=== PATIENT | male | born 1945 | race Caucasian/White ===

== ENCOUNTER 2018-04-05 14:28 | Inpatient (IN) | END 2018-04-10 14:26 | disposition home or self-care (01) | DRG 193 ==

== ENCOUNTER → 2018-11-02 | Outpatient (CLI) | payer MEDICARE, OTHER ==
[~2018-11-02] MED LIST: ACET325 PO; ARIP10 PO; Abilify2 MG PO; DONE10 PO; LEVFLO500 PO; LOPE2C PO; NYSTATIN1 EAC1 TOP; RANI150 PO; TRAZ100 PO
[2018-11-02 15:47] LABS: Appearance, Urine Hazy (Clear); Bilirubin, Urine Neg (Neg); Blood, Urine 1+ (Neg); Color, Urine Yellow (P-Yellow); Glucose Qualitative, Urine Neg (Neg); Ketones, Urine 1+ (Neg); Leukocyte Esterase, Urine 3+ (Neg); Nitrite, Urine Neg (Neg); Protein, Urine 2+ (Neg); Urobilinogen, Urine NORM (Normal); pH, Urine 6.5 (5.0-8.0)
[2018-11-02 16:04] LABS: Squamous Epithelial Cells Few /hpf (Few); White Blood Cells, Urine 50-100 /hpf (0-5)
[2018-11-02 16:05] LABS: Amorphous Light (0-Heavy); Bacteria Few /hpf; Mucus Light (0-Heavy); Transitional Epithelial Cells Rare /hpf (0-Rare)
== END | disposition home or self-care (01) ==
LOC: LAB 13:20 → LAB SHORT 13:20
PROVIDERS: Nurse Practitioner Primary Care
DX: N39.0 Urinary tract infection, site not specified (principal)
CPT/HCPCS: 81001; 87077; 87086; 87186

== ENCOUNTER 2018-11-03 15:20 | Inpatient (IN) | payer MEDICARE, OTHER ==
[~2018-11-03] VITALS: Ht 182.9 cm; Wt 66.5 kg
[~2018-11-03 15:20] MED LIST changes: -LOPE2C PO
[2018-11-03 16:02] LABS: BASOPHILS ABSOLUTE AUTO 0.03 K/mm3 (0.00-0.23); BASOPHILS PERCENT AUTO 0 % (0-2); EOSINOPHILS ABSOLUTE AUTO 0.01 K/mm3 (0.00-0.68); EOSINOPHILS PERCENT AUTO 0 % (0-6); Hematocrit 47.8 % (37.0-53.0); Hemoglobin 15.3 g/dL (13.5-17.5); IMMATURE GRAN ABSOLUTE AUTO 0.06 K/mm3 (0.00-0.10); IMMATURE GRAN PERCENT AUTO 0 % (0-1); LYMPHOCYTES ABSOLUTE AUTO 0.55 K/mm3 (0.84-5.20); LYMPHOCYTES PERCENT AUTO 3 % (21-46); MONOCYTES ABSOLUTE AUTO 0.66 K/mm3 (0.16-1.47); MONOCYTES PERCENT AUTO 4 % (4-13); Mean Corpuscular HGB 29.3 pg (26.0-34.0); Mean Corpuscular Volume 92 fL (80-100); Mean Platelet Volume 11.1 fL (9.1-12.4); NEUTROPHILS ABSOLUTE AUTO 14.81 K/mm3 (1.96-9.15); NEUTROPHILS PERCENT AUTO 92 % (41-73); NRBC ABSOLUTE 0.02 K/mm3 (0.00-0.02); NRBC Auto 0.1 /100 WBC (0.0-0.2); Platelet Count 161 K/mm3 (150-400); RDW Coefficient Variation 15.9 % (11.7-14.2); Red Blood Cell Count 5.22 M/mm3 (4.30-5.90); White Blood Cell Count 16.12 K/mm3 (4.00-11.30)
[2018-11-03 16:09] LABS: Source, Urine Catheter
[2018-11-03 16:13] LABS: Appearance, Urine Clear (Clear); Bilirubin, Urine Neg (Neg); Blood, Urine Neg (Neg); Color, Urine Yellow (P-Yellow); Glucose Qualitative, Urine Neg (Neg); Ketones, Urine 3+ (Neg); Leukocyte Esterase, Urine 1+ (Neg); Nitrite, Urine Neg (Neg); Protein, Urine 1+ (Neg); Specific Gravity, Urine 1.025 (1.003-1.022); Urobilinogen, Urine NORM (Normal)
[2018-11-03 16:13] LABS: Alanine Aminotransfer (ALT/SGP 72 U/L (12-78); Albumin, Blood 3.6 g/dL (3.4-5.0); Albumin/Globulin Ratio 1.1 (0.8-1.8); Alk Phos 124 U/L (50-136); Anion Gap 11 mmol/L (6-16); Aspartate Aminotrans (AST/SGOT 58 U/L (12-37); Bilirubin, Total 0.8 mg/dL (0.1-1.0); Blood Urea Nitrogen 34 mg/dL (8-24); Bun/Creatinine Ratio 29.8 (12.0-20.0); CO2, Blood 22 mmol/L (21-32); Calcium, Blood 9.5 mg/dL (8.5-10.1); Chloride, Blood 108 mmol/L (98-108); Creatinine, Blood 1.14 mg/dL (0.60-1.20); Globulin, Blood 3.4 g/dL (2.2-4.0); Glomerular Filtration Rate >60 (60-); Glucose, Blood 84 mg/dL (70-99); Potassium, Blood 4.5 mmol/L (3.5-5.5); Sodium, Blood 141 mmol/L (136-145)
[2018-11-03 16:24] LABS: Bacteria Few /hpf; Red Blood Cells, Urine Not Seen /hpf (0-2); Squamous Epithelial Cells Rare /hpf (Few)
[2018-11-03 18:32] LABS: PCO2 Arterial 34.7 mmHg (35-45); pH Blood Arterial 7.38 (7.35-7.45)
[2018-11-03 18:33] LABS: PO2 Arterial 46.1 mmHg (80-100)
--- NOTE | 2018-11-03 22:51 | NUR ---
PT ARRIVAL. PT TRANSFERED TO UNIT FROM ED. PT IS LETHARGIC AND IS UNABLE TO COMMUNICATE. PT GRUNTS TO SOME QUESTIONS IN RESPONSE BUT NO SENSICAL ANSWERS, PT DOES NOT FOLLOW DIRECTIONS WELL. PT HAS HISTORY OF DEMENTIA AND BLINDNESS. BED ALARM IS ON. TELE PLACED, SR W/PACS IN THE 70'S. BP 117/61. NO EDEMA NOTED ON ASSESSMENT. L/S DIM. BT PRESENT AND HYPOACTIVE. ABD IS SOFT AND NONTENDER TO PALP. CALL LIGHT IS IN REACH, BED IS LOCKED AND LOW, WILL CONTINUE TO MONITOR.
[2018-11-03] MEDS ORDERED: LOPE2C PO (23:17)
[2018-11-04 04:00] LABS: Hematocrit 42.1 % (37.0-53.0); Hemoglobin 13.6 g/dL (13.5-17.5); Mean Corpuscular HGB 29.5 pg (26.0-34.0); Mean Corpuscular HGB Conc 32.3 g/dL (31.5-36.5); Mean Corpuscular Volume 91 fL (80-100); Mean Platelet Volume 11.2 fL (9.1-12.4); Platelet Count 148 K/mm3 (150-400); RDW Coefficient Variation 15.7 % (11.7-14.2); RDW Standard Deviation 51.6 fL (35.1-46.3); Red Blood Cell Count 4.61 M/mm3 (4.30-5.90); White Blood Cell Count 18.71 K/mm3 (4.00-11.30)
[2018-11-04 04:23] LABS: Anion Gap 11 mmol/L (6-16); Blood Urea Nitrogen 31 mg/dL (8-24); CO2, Blood 22 mmol/L (21-32); Calcium, Blood 8.6 mg/dL (8.5-10.1); Chloride, Blood 110 mmol/L (98-108); Creatinine, Blood 1.07 mg/dL (0.60-1.20); Glomerular Filtration Rate >60 (60-); Glucose, Blood 234 mg/dL (70-99); Potassium, Blood 3.7 mmol/L (3.5-5.5); Sodium, Blood 143 mmol/L (136-145)
[2018-11-04 04:56] LABS: BAND PERCENT MAN 14 % (0-8); BASOPHILS PERCENT MAN 0 % (0-2); EOSINOPHILS PERCENT MAN 0 % (0-6); LYMPHOCYTES % ATYPICAL MANUAL 1 % (0-0); LYMPHOCYTES ABSOLUTE MAN 0.18 K/mm3 (0.84-5.20); MONOCYTES ABSOLUTE MAN 0.37 K/mm3 (0.16-1.47); MONOCYTES PERCENT MAN 2 % (4-13); NEUTROPHILS ABSOLUTE MAN 18.14 K/mm3 (1.96-9.15); SEG NEUTROPHILS PERCENT MAN 83 % (41-73); TOTAL CELLS COUNTED 100
--- NOTE | 2018-11-04 05:43 | NUR ---
SHIFT SUMMARY. PT IS A&O TO ONLY HIMSELF, HE IS NOT LETHARGIC ANY MORE, HE IS WIDE AWAKE, PULLING OFF THE TELE, ATTENDS AND HIS GOWN AND ATTEMPTING TO CLIMB OUT OF BED. PT IS VERY CONFUSED AND AT TIMES COMBATIVE. PT IS ALSO VERY STRONG. VS HAVE BEEN STABLE, AND NO CARDIAC EVENTS ON TELE. PT IS VERY FIXATED ON THE TELE LEADS/CORD AND HIS IV, ATTEMPTS TO DISTRACT PT FROM THESE HAVE FAILED. CALL LIGHT IS IN REACH, BED IS LOCKED AND LOW, WILL CONTINUE TO MONITOR UNTIL REPORT IS GIVEN TO ONCOMING RN.
--- NOTE | 2018-11-04 09:38 | NUR ---
PCU DAYSHIFT ASSUMED CARE OF PT APPROX. 0700. PT ALERT AND ORIENTED TO SELF. PT UNABLE TO FOLLOW DIRECTIONS AT THIS TIME. BUT PT AWAKE AND SITTING UP IN BED. ASSESSMENT COMPLETED, VITAL SIGNS STABLE. SIDE RAILS UP ON BED, BED ALARM ON, CALL LIGHT IN REACH AND PT DENIES ANY NEEDS AT THIS TIME.
--- NOTE | 2018-11-04 09:40 | NUR ---
PT HAS SOME INCREASED CONFUSION AND AGGITATION. PT ATTEMPTING TO GET OUT OF BED, REPORTED THAT HE IS GOING TO LEAVE THIS PLACE. PT ALSO TORE OFF TELE MONITOR AND IV AT THIS TIME. ORIENTED PT AND EDUCATED ON LOCATION AND SITUATION. TELE MONITOR REPLACED. IV SITE ASSESSMENT AND REMAIN INTACT. IV RECONNECTED AT THIS TIME.
--- NOTE | 2018-11-04 13:43 | NUR ---
PT MOVED FROM PCU 15 TO PCU 10 FOR PT SAFETY, PT CONTINUES TO HAVE CONFUSION AND ATTEMPTS TO CRAWL OUT OF BED AND PULL ON IV AND CORDS. PT TRANSPORTED BY BED BY PEER STAFF. PT SITUATED AND ORIENTED TO NEW ROOM.
--- NOTE | 2018-11-04 15:21 | NUR ---
UNABLE TO ABTAIN BLOOD PRESSURE AT NOON VITALS DUE TO CONFUSION AND AGGITATION. PT WOULD NOT HOLD ARM STILL LONG ENOUGH TO OBTAIN AND THEN CONTINUED TO PULL BLOOD PRESSURE CUFF OFF.
--- NOTE | 2018-11-04 17:44 | NUR ---
SHIFT SUMMARY PT ASSESSMENT REMAINS UNCHANGED FROM MORNING. PT HAD INCREASED CONFUSION AND AGGIATION INTTERMITTENTLY. PT CONTINUED TO ATTEMPT TO GET OUT OF BED AND PULL ON CORDS AND LINES. TIFFANIE VEST PLACED PER PMD ORDERS. THIS HELPED PT. PT MORE RELAXED AND DID NOT ATTEMPT TO CRAWL OUT OF BED WITH THIS. OCCASIONALLY PT ABLE TO FOLLOW ONE STEP DIRECTIONS WHEN GIVEN. PT REMAINS NPO UNABLE TO FOLLOW DIRECTIONS WHEN ASSESSING ABILITY TO SWALLOW. TIFFANIE VEST REMAINS IN PLACE, BED IN LOW POSTION, BED ALARM ON, CALL LIGHT IN REACH AND PT DENIES ANY NEEDS AT THIS TIME. WILL CONTINUE TO MONITOR UNTIL HANDOFF TO NIGHTSHIFT RN.
--- NOTE | 2018-11-05 06:10 | NUR ---
SHIFT SUMMARY PT CONFUSED TO SELF AND SURROUNDINGS T/O SHIFT. HE WAS PULLING AT LINES, ATTEMPTING TO GET OUT OF BED CONTINUALLY, AND YELLING OUT DURING THE NIGHT. HE REMAINED IN HIS TIFFANIE VEST WITH 4X SIDE RAILS IN PLACE FOR SAFETY. PT HAS BED ALARM ACTIVE AND BED IN LOWEST POSITION. PT DID NOT GET ANY SLEEP DURING THE NIGHT. HE HAS BEEN ROUTINELY ROUNDED ON Q1-2 HOURS FOR RESTRAINT AND WELL-BEING MONITORING. PT DOES NOT SHOW ANY S/SX OF PAIN OR DISCOMFORT. HE HAD NO ACUTE CHANGES TO VITALS OR LOC. HE WILL CONTINUE TO BE MONITORED UNTIL KENNY TO [facility] SPARROW.
--- NOTE | 2018-11-05 18:08 | NUR ---
SHIFT SUMMARY Assumed care at 0700. Report recieved from Usama SPARROW. Pt on room air. Medical floor status without telemetry. Pt in vest restraint. Pt combative when staff providing care. Instructed by Dr Owens to attempt PO intake with pt as speech therapy has been unavailable. PO intake attempted with charge account identification clerk, Aure. Pt unable to follow directions. Applesauce was placed in pt's mouth and he retained it there intead of swallowing. Bolus eventually suctioned out of pt's mouth. No coughing, choking, or gagging noted. Pt recieved assingment on medical floor, for room 345. Report called to medical floor RN. Pt transferred from PCU to medical floor at 1705 via bed, accompanied by Aure SPARROW and Lisy YUSUF. Medications, belonings, and chart transferred with patient.
--- NOTE | 2018-11-05 18:42 | NUR ---
SHIFT SUMMARY: NO ACUTE CHANGES SINCE TRANSFER FROM PCU TO [facility]. PT REMAINS IN TIFFANIE VEST. HE HAS BEEN REDIRECTABLE. WILL CTM UNITL REPORT GIVEN TO NEXT SHIFT RN.
--- NOTE | 2018-11-06 04:30 | NUR ---
SHIFT SUMMARY: PT IS ALERT, INCOHERENT VERBALLY, CANNOT DETERMINE ORIENTATION, BASELINE ADVANCED DEMENTIA. PT IN TIFFANIE VEST, PULLING AT LINES AND ATTENDS, CALLED DR. MUHAMMAD AND RECEIVED AN ORDER FOR BL WRIST RESTRAINTS. PT SLEEPING INTERMITTENTLY THROUGHOUT THE NIGHT, CALLING OUT AT TIMES. FLUIDS RUNNING ORDERED. PT INCONTINENT ON SEVERAL OCCASIONS, CHANGED AND CLEANED NEEDED. PT SHOWS NO S/S FOR PAIN, NAUSEA, VOMITING, OR SOB. BED IN LOW POSITION, CALL LIGHT WITHIN REACH, BED ALARM SET. WILL REPORT TO DAY NURSE.
[2018-11-06 05:12] LABS: BASOPHILS ABSOLUTE AUTO 0.01 K/mm3 (0.00-0.23); BASOPHILS PERCENT AUTO 0 % (0-2); EOSINOPHILS PERCENT AUTO 0 % (0-6); Hematocrit 37.2 % (37.0-53.0); Hemoglobin 12.1 g/dL (13.5-17.5); IMMATURE GRAN ABSOLUTE AUTO 0.07 K/mm3 (0.00-0.10); IMMATURE GRAN PERCENT AUTO 1 % (0-1); LYMPHOCYTES PERCENT AUTO 3 % (21-46); MONOCYTES ABSOLUTE AUTO 0.65 K/mm3 (0.16-1.47); MONOCYTES PERCENT AUTO 5 % (4-13); Mean Corpuscular HGB 29.2 pg (26.0-34.0); Mean Corpuscular HGB Conc 32.5 g/dL (31.5-36.5); Mean Corpuscular Volume 90 fL (80-100); Mean Platelet Volume 11.3 fL (9.1-12.4); NEUTROPHILS ABSOLUTE AUTO 12.83 K/mm3 (1.96-9.15); NEUTROPHILS PERCENT AUTO 92 % (41-73); NRBC ABSOLUTE 0.02 K/mm3 (0.00-0.02); NRBC Auto 0.1 /100 WBC (0.0-0.2); Platelet Count 146 K/mm3 (150-400); RDW Standard Deviation 51.6 fL (35.1-46.3); Red Blood Cell Count 4.14 M/mm3 (4.30-5.90); White Blood Cell Count 13.96 K/mm3 (4.00-11.30)
--- NOTE | 2018-11-06 13:22 | NUR ---
INITIAL PAL CARE EVAL AND VISIT. Pt sitting up in bed with jennifer vest in place. He is wide awake and alert but confused. He is not able to converse in an intelligible way and attempting conversation appears to make him anxious. He is fairly quiet in the room for the 45-60 minutes that I was on the phone and charting outside of his room. I reviewed EMR and ST bowen done this am. UPdate also obtained from pt's RN. EMR has a POLST completed in 2014 requesting full code and full treatment. NO AD or decision maker documentation was found in the EMR. T/C to pt's listed [facility], ph# [phone]. She does have an AD for Gian naming her as his POA for and faxed that to me. She was given an update on Gian's current status and concerns and goals of care reviewed with her. She was agreeable to completing an updated POLST based on pt's AD, which stated that pt did NOT want his life prolonged by life support or tube feedings. Vida states she will come see pt on the but that he may not recognize her. She also states she will call patient's daughter and give her an update on his status. Dr, RN and Care Managers updated on all of the above and new POLST. Orders entered for change of code status to DNR, hospice eval, oncology social work for assist w/dc plan. Discused goal of s/s management, comfort/hospice care with [facility] and potential d/c today. They will need copies of POLST and AD also. Jonathan at [facility] states Gian was eating fairly well and was independently ambulatory prior to his current decline/illness and lives in an upstairs room. [facility] does not have staff available to evaluate for readmission until November 08. This was also reported to RN, AMOR and . Pt's s/s appear mostly well managed as he did not display painful behaviours during my visit but he may need prn medications for anxiety and/or agitation. Spoke to regarding this. AD and POLST to be sent to medical records for scanning into record and then placed on chart to be sent with pt back to [facility].
--- NOTE | 2018-11-06 17:57 | NUR ---
SHIFT SUMMARY. PT IS ALERT, DISORIENTATED, INCOMPREHENSIBLE SPEECH, DOES NOT FOLLOW COMMANDS OR ANSWER QUESTIONS. PT CONTINUES WITH TIFFANIE VEST AND WRIST RESTRAINTS SECONDARY TO VERY HIGH FALL RISK SECONDARY TO CONFUSION AND IMPULSIVITY. PT PULLS AT LINES, PT IS STRICT NPO AND REQUIRING IV HYDRATION. SPOKE WITH DR. PINO, RECIEVED ORDERS TO REDUCE RATE OF IV NS TO 75 ML/HR. PT RESPONDED WELL TO FIRST ATTENDS CHANGE, EVERY OTHER ATTENDS CHANGE HAS REQUIRED 3-4 STAFF DUE TO AGITATION. CALM, LOW STIMULUS ENVIRONMENT PROVIDED, PT REPOSITIONED WITH EACH ATTENDS CHANGE. PT WITH NO S/SX OF SOB, N/V, OR PAIN. PER ST, PT IS STRICT NPO, SEE ST SWALLOW EVAL. NO OTHER CHANGES.
--- NOTE | 2018-11-07 05:16 | NUR ---
SHIFT SUMMARY PT AWAKE UNTIL ROUGHLY 0330 THIS AM & HAS BEEN SLEEPING WELL SINCE. PT IS CONFUSED BUT ALERT TO SELF. HIS EYES LOOK IN YOUR DIRECTION WHEN YOU SAY HIS NAME & HE MUMBLES. EARLIER IN SHIFT PT WAS VERY AGITATED TRYING TO GET OOB, PULLING ON RESTRAINTS, TAKING ATTENDS OFF & YELLING "HELP ME" REPETITIVELY. NOTIFIED DR. MUHAMMAD OF PTS AGITATION & SHE ORDERED A 1X DOSE OF HALDOL. PT HAS BEEN CALMLY RESTING SINCE. RESTRAINT ORDER RENEWED FOR SAFETY & RESTRAINTS HAVE BEEN REMOVED & SKIN CHECKED Q2H & PRN. NO S/S PAIN, N/V OR SOB. CALL LIGHT IS IN REACH & BED IS IN LOWEST POSITION.
--- NOTE | 2018-11-07 19:21 | NUR ---
PT LETHARGIC AND AGITATED AT TIMES. VS WITHIN NORMAL LIMITS. ZYPREXA GIVEN FOR AGITATION. PT RESTED FOR THE REST OF SHIFT. PT INCONTINENT. IN BILATERAL SOFT WRIST RESTRAINTS AND VEST. BED ALARM SET. REPORT GIVEN TO ONCOMING NURSE.
[2018-11-08 05:03] LABS: BASOPHILS ABSOLUTE AUTO 0.02 K/mm3 (0.00-0.23); BASOPHILS PERCENT AUTO 0 % (0-2); EOSINOPHILS PERCENT AUTO 0 % (0-6); Hemoglobin 12.6 g/dL (13.5-17.5); IMMATURE GRAN ABSOLUTE AUTO 0.11 K/mm3 (0.00-0.10); IMMATURE GRAN PERCENT AUTO 1 % (0-1); LYMPHOCYTES PERCENT AUTO 3 % (21-46); MONOCYTES ABSOLUTE AUTO 0.76 K/mm3 (0.16-1.47); MONOCYTES PERCENT AUTO 6 % (4-13); Mean Corpuscular HGB 29.5 pg (26.0-34.0); Mean Corpuscular HGB Conc 33.2 g/dL (31.5-36.5); Mean Corpuscular Volume 89 fL (80-100); Mean Platelet Volume 10.5 fL (9.1-12.4); NEUTROPHILS ABSOLUTE AUTO 10.67 K/mm3 (1.96-9.15); NEUTROPHILS PERCENT AUTO 89 % (41-73); NRBC ABSOLUTE 0.02 K/mm3 (0.00-0.02); NRBC Auto 0.2 /100 WBC (0.0-0.2); Platelet Count 140 K/mm3 (150-400); RDW Coefficient Variation 15.9 % (11.7-14.2); RDW Standard Deviation 51.4 fL (35.1-46.3); Red Blood Cell Count 4.27 M/mm3 (4.30-5.90); White Blood Cell Count 11.96 K/mm3 (4.00-11.30)
[2018-11-08 05:23] LABS: Alanine Aminotransfer (ALT/SGP 38 U/L (12-78); Albumin, Blood 2.7 g/dL (3.4-5.0); Albumin/Globulin Ratio 0.9 (0.8-1.8); Alk Phos 92 U/L (50-136); Anion Gap 7 mmol/L (6-16); Aspartate Aminotrans (AST/SGOT 45 U/L (12-37); Blood Urea Nitrogen 35 mg/dL (8-24); CO2, Blood 27 mmol/L (21-32); Calcium, Blood 8.9 mg/dL (8.5-10.1); Chloride, Blood 120 mmol/L (98-108); Glomerular Filtration Rate >60 (60-); Glucose, Blood 74 mg/dL (70-99); Potassium, Blood 3.3 mmol/L (3.5-5.5); Sodium, Blood 154 mmol/L (136-145); Total Protein, Blood 5.7 g/dL (6.4-8.2)
--- NOTE | 2018-11-08 06:25 | NUR ---
Rn summary: Patient is confused with history of end stage dementia. Pt is non verbal, does not follow commands. Pt has continued to be in both vest restraints and isabel soft wrist restraints. Pt tries to get out of bed and pulls off attends. Pt has been incontinent of urine, he often pulls off or shreds attends, almost every 2 hours and has required some form of linen change each time. Pt has received oral care frequently. Pt is NPO per order. Pt does have a productive cough, oral suction to clear from mouth. Pt has been repositioned q 2 hours. Monitored closely.
--- NOTE | 2018-11-08 19:31 | NUR ---
PT LETHARGIC AT TIMES AND HAS GARGLED SPEACH. IN BILATERAL WRIST RESTRAINTS AND VEST TO PREVENT INJURY AND PULLING OUT LINES. PT INCONTINENT. DIET ADVANCED TO PUREE AND NECTAR THICK, TOLERATED WELL. BED ALARM ACTIVATED. REPORT GIVEN TO ONCOMING NURSE.
--- NOTE | 2018-11-09 05:56 | NUR ---
Rn summary: Patient is more alert tonight. Pt did wake up and eat the magic gupta icecream, peaches and 1 120cc of thickened water. Pt had no difficulty swallowing. Patient remains in restraints to maintain IV and to keep him from getting out of bed. Pt has been less restless tonight. Although he has been incontinent he has not been rippong his attends off and soaking the bed. Pt remains confused. Repositioned and restraints checked q 2 hours.
[2018-11-09 06:12] LABS: Anion Gap 8 mmol/L (6-16); Blood Urea Nitrogen 31 mg/dL (8-24); Bun/Creatinine Ratio 36.7 (12.0-20.0); CO2, Blood 29 mmol/L (21-32); Calcium, Blood 8.7 mg/dL (8.5-10.1); Chloride, Blood 115 mmol/L (98-108); Creatinine, Blood 0.84 mg/dL (0.60-1.20); Glomerular Filtration Rate >60 (60-); Glucose, Blood 48 mg/dL (70-99); Potassium, Blood 3.2 mmol/L (3.5-5.5); Sodium, Blood 152 mmol/L (136-145)
[2018-11-09] MEDS ORDERED: MORP20L PO (09:41)
[2018-11-09] MEDS ORDERED: OLAN5A MM (09:42)
--- NOTE | 2018-11-09 10:10 | NUR ---
Pt visit this AM. Pt resting in bed and appears comfortable. He is minimally responsive and non verbal when questions are asked. POLST formed is signed. Faxed copy of POLST and advanced directive to medical records and faxed copy of POLST to registry. Spoke with Pt's nurse Linda and she reports Pt is occasionally agitated. Linda reports that Pt has medication available for agitation and will offer when Pt experiences symptoms again. No other concerns reported at this time.
--- NOTE | 2018-11-09 14:30 | NUR ---
DISCHARGE NOTE PATIENT DISCHARGED BY [facility]ITA BACK TO [facility]. IV D/C, WNL. BELONGINGS SENT WITH PATIENT.
== END 2018-11-09 13:28 | DRG 189 ==
LOC: ER 15:20 → PCU 15:21 → MEDS 22:21 → PCU 22:30 → MEDS 11-05 17:05 → ENPENDDIS 11-09 09:59 → MEDS 11-09 13:28
PROVIDERS: Emergency Medicine; Internal Medicine; ADMIT Hospitalist
DX: J96.01 Acute respiratory failure with hypoxia (principal); G92 Toxic encephalopathy; J44.1 Chronic obstructive pulmonary disease with (acute) exacerbation; N39.0 Urinary tract infection, site not specified; E46 Unspecified protein-calorie malnutrition; E86.9 Volume depletion, unspecified; F03.90 Unspecified dementia, unspecified severity, without behavioral disturbance, psychotic disturbance, mood disturbance, and anxiety; Z66 Do not resuscitate; Z51.5 Encounter for palliative care; Z79.899 Other long term (current) drug therapy; Z68.20 Body mass index [BMI] 20.0-20.9, adult
CPT/HCPCS: 36415; 36600; 51701; 70450; 71046; 80048; 80053; 81001; 82803; 82947; 85025; 92526; 92610; 93005; 93010; 94640; 94760; 96361; 96365; 96372; 96375; 99285-25; G8996; G8997; G8998; J0696; J1630; J1650; J2930; J7030; J7042